=== PATIENT | male | born 1975 | race Caucasian/White ===

== ENCOUNTER 2021-03-24 07:30 | Emergency (ER) | payer BC ==
[2021-03-24 08:23] LABS: CORONAVIRUS COVID-19 NAA NEGATIVE (NEGATIVE); RESPIRATORY SYNCYTIAL VIR NAA NEGATIVE (NEGATIVE)
[2021-03-24] MEDS ORDERED: Ondansetron 4 MG/2 ML SDV IVPUSH ONE (10:04)
[2021-03-24] MEDS ORDERED: HYDROmorphone 1 MG/ML Syringe IVPUSH ONE (10:05)
[2021-03-24] MEDS: Sodium Chloride 0.9% 10 ML Syringe FLUSH PRN ×2 (10:19→10:20)
[2021-03-24 10:47] LABS: ANION GAP 6.4 meq/L (7-15); CHLORIDE,CL 102 mmol/L (98-107); SODIUM,NA 139 mmol/L (136-145)
[2021-03-24] MEDS ORDERED: Morphine 4 MG/ML Syringe IVPUSH ONE (11:26)
[2021-03-24] MEDS ORDERED: Iopamidol 612 MG/ML 100 ML Bottle IVPUSH ONE ×2 (11:41→12:00)
[2021-03-24] MEDS ORDERED: cefTRIAXone 2 GM in Sodium Chloride 0.9% 100 ML IV ONE (12:03)
[2021-03-24] MEDS ORDERED: Acetaminophen 325 MG Tab PO ONE (12:15)
[2021-03-24] MEDS ORDERED: traMADol 50 MG Tab PO ONE (12:16)
[2021-03-24] MEDS ORDERED: traMADol 50 MG Tab ONE (12:36)
[2021-03-24] MEDS ORDERED: Sodium Chloride 0.9% 1,000 ML IV ONE (13:10)
[2021-03-24 16:17] VITALS: BP 117/75; PULSE 93
== END 2021-03-24 13:50 ==
LOC: LL.ED 07:30
DX: K61.1 Rectal abscess (principal); Z20.822 Contact with and (suspected) exposure to COVID-19
CPT/HCPCS: 0241U; 36415; 72193; 80053; 81001; 83605; 83735; 85025; 96365; 96375; 99285-25; A9270-GY; J0696; J1170; J2270; J2405; Q9967

== ENCOUNTER 2023-12-13 18:03 | Emergency (ER) | payer BC ==
[2023-12-13 18:08] VITALS: PULSE 67
[2023-12-13 18:16] VITALS: BP 128/96
[2023-12-13] MEDS: Tetracaine HCl/PF 0.5% 4 ML Bottle EYEBOTH ONE (18:23)
[2023-12-13] MEDS: Take Home: traMADol 50 MG, 4 Tab Pack PO ONE (18:38)
[2023-12-13] MEDS: Erythromycin Base 0.5% Ophth Oint 3.5 GM Tube EYERT ONE (18:38)
== END 2023-12-13 18:45 | disposition home or self-care (01) ==
LOC: LL.ED 18:03
DX: T15.91XA Foreign body on external eye, part unspecified, right eye, initial encounter (principal)
CPT/HCPCS: 65220; 99283; 99283-25; A9270-GY; J3490